=== PATIENT | male | born 2005 | race Caucasian/White ===

== ENCOUNTER 2025-06-01 06:56 | Emergency (ER) | payer SELFPAY ==
[~2025-06-01] VITALS: Ht 170.2 cm; Wt 65.0 kg
[2025-06-01] MEDS ORDERED: LEVOTAB10 PO (07:26)
[2025-06-01] MEDS ORDERED: OMEP40CA4 PO (07:26)
[2025-06-01] MEDS ORDERED: HOME MED LIST COMPLETE! XX SCH (08:10)
[2025-06-01] MEDS: ONDANSETRON 4MG 2ML VIAL IV ONE (08:26)
[2025-06-01 08:49] LABS: BASO # 0.1 10^3/uL (0.0-0.2); BASO % 0.9 % (0.0-1.0); EOS # 0.3 10^3/uL (0.0-0.5); EOS % 3.5 % (0.0-3.0); LYMPH # 1.3 10^3/uL (1.5-5.0); LYMPH % 15.9 % (24.0-44.0); MONO # 0.7 10^3/uL (0.0-0.8); MONO % 9.0 % (2.0-8.0); NEUTROPHILS # 5.8 10^3/uL (1.5-8.5); NEUTROPHILS % 70.3 % (36.0-66.0); PLATELET COUNT, AUTOMATED 263 10^3/uL (150-450)
[2025-06-01 09:04] LABS: ALT/SGPT 20 U/L (7.0-40); AST/SGOT 20 U/L (<34); CALCIUM LEVEL 9.6 MG/DL (8.5-10.1); CARBON DIOXIDE LEVEL 25 MMOL/L (20-31); CHLORIDE LEVEL 106 MMOL/L (98-107); CREATININE FOR GFR 0.83 MG/DL (0.70-1.30); GLOMERULAR FILTRATION RATE > 90.0 (>60); POTASSIUM SERUM 4.3 MMOL/L (3.5-5.1); SODIUM LEVEL 143 MMOL/L (136-145)
[2025-06-01 09:11] VITALS: O2SAT 98
[2025-06-01 09:23] VITALS: BP 121/73
[2025-06-01] MEDS ORDERED: ONDA-282 PO (09:34)
[2025-06-01] MEDS ORDERED: SUCR1SS PO (09:34)
[2025-06-01 09:42] VITALS: TEMP 98
== END 2025-06-01 09:51 | disposition home or self-care (01) ==
LOC: M ED 06:56
DX: R11.10 Vomiting, unspecified (principal); R19.7 Diarrhea, unspecified; K21.9 Gastro-esophageal reflux disease without esophagitis; F17.200 Nicotine dependence, unspecified, uncomplicated; F12.10 Cannabis abuse, uncomplicated; Z91.030 Bee allergy status; Z91.013 Allergy to seafood; Z88.8 Allergy status to other drugs, medicaments and biological substances; Z79.899 Other long term (current) drug therapy; Z79.83 Long term (current) use of bisphosphonates
CPT/HCPCS: 80048; 80076; 83690; 85025; 96374; 99284; J2405